=== PATIENT | female | born 1990 | race Caucasian/White ===

== ENCOUNTER → 2025-08-06 | Outpatient (CLI) | payer OTHER, SELFPAY ==
--- NOTE | 2025-08-06 08:53 | XR_ITS ---
EXAMINATION: Thyroid sonography TECHNIQUE: Grayscale sonographic images thyroid lobes Date and time: August 06, 2025, 0902 hours, comparison September 15, 2012 INDICATIONS: Neck swelling and hyperthyroidism on laboratory examination performed 3 weeks ago. FINDINGS: Right thyroid 4.4 cm Lower pole nodule 6 x 5 mm, 17 x 9 mm Left thyroid 4.4 cm Mid pole nodule is 8 x 3 mm, 4 x 4 mm IMPRESSION: Bilateral thyroid nodules as above Consider ultrasound-guided fine-needle aspiration of the larger lower pole right thyroid nodule
== END | disposition home or self-care (01) ==
LOC: CDIM 08:48
PROVIDERS: Referring Provider Nurse Practitioner Family; Visit Provider Nurse Practitioner Family
DX: E04.2 Nontoxic multinodular goiter (principal)
CPT/HCPCS: 76536